=== PATIENT | female | born 2000 | race Caucasian/White ===

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

== ENCOUNTER 2018-01-24 15:36 | Emergency (ER) | payer BC, OTHER ==
[2018-01-24 16:51] VITALS: BP 152/81
--- NOTE | 2018-01-24 18:11 | UC ---
UC General HPI - HPI Summary HPI Summary: 3-4 day hx of cough with chest congestion. no fever or asthma. lungs feel a little tight but no wheezing or sob. started mucinex and feels better than she did yesterday. - History of Current Complaint Chief Complaint: UCRespiratory Stated Complaint: COUGH/CHEST CONGESTION Time Seen by Provider: 01/24/18 18:06 Hx Obtained From: Patient Hx Last Menstrual Period: 01/02/18 Onset/Duration: Gradual Onset Timing: Constant Pain Intensity: 0 Associated Signs & Symptoms: Negative: Chest Pain, Diarrhea, Fever, Nausea, Vomiting - Allergy/Home Medications Allergies/Adverse Reactions: Allergies Allergy/AdvReac Type Severity Reaction Status Date / Time No Known Allergies Allergy Verified 01/24/18 16:49 Home Medications: Home Medications Ibuprofen TAB* [Motrin TAB* 400 MG] 400 mg PO Q6H PRN 01/24/18 [History Confirmed 01/24/18] PMH/Surg Hx/FS Hx/Imm Hx Previously Healthy: Yes - Surgical History Surgical History: None - Family History Known Family History: Positive: None - Social History Occupation: Student Lives: Dormitory/Roommates Alcohol Use: Rare Substance Use Type: None Smoking Status (MU): Never Smoked Tobacco - Immunization History Most Recent Influenza Vaccination: 2017 Vaccination Up to Date: Yes Review of Systems All Other Systems Reviewed And Are Negative: Yes Constitutional: Positive: Negative Skin: Positive: Negative Eyes: Positive: Negative ENT: Positive: Negative Respiratory: Positive: Cough Cardiovascular: Positive: Negative Gastrointestinal: Positive: Negative Genitourinary: Positive: Negative Motor: Positive: Negative Neurovascular: Positive: Negative Musculoskeletal: Positive: Negative Neurological: Positive: Negative Psychological: Positive: Negative Physical Exam Triage Information Reviewed: Yes Appearance: Well-Appearing Vital Signs: Initial Vital Signs Temp 98.1 F 01/24/18 16:48 Pulse 94 01/24/18 16:48 Resp 16 01/24/18 16:48 BP 152/81 01/24/18 16:48 Pulse Ox 99 01/24/18 16:48 Eye Exam: Normal ENT: Positive: Pharynx normal, TMs normal. Negative: Nasal congestion, Nasal drainage Neck: Positive: Supple, Nontender, No Lymphadenopathy Respiratory: Positive: Lungs clear, Normal breath sounds, No respiratory distress, Other: - Occasional cough with mild congestion. Cardiovascular: Positive: RRR, No Murmur Abdomen Description: Positive: Nontender, No Organomegaly, Soft Bowel Sounds: Positive: Present Musculoskeletal: Positive: ROM Intact Neurological: Positive: Alert Psychological: Positive: Age Appropriate Behavior Skin Exam: Normal Course/Dx - Course Course Of Treatment: BP illness/visit related. - Differential Dx - Multi-Symptom Differential Diagnoses: Other - her lung tightnes.no concern for pneumonia. pt improvingg since yesterday. pt to continue Mucinex and I will add albuterol for - Diagnoses Provider Diagnosis: Bronchitis Discharge - Sign-Out/Discharge Documenting (check all that apply): Patient Departure All imaging exams completed and their final reports reviewed: No Studies - Discharge Plan Condition: Stable Disposition: HOME Prescriptions: Albuterol HFA INHALER* [Ventolin HFA Inhaler*] 2 puff INH Q6H #1 mdi Patient Education Materials: Acute Bronchitis (ED) Referrals: [facility] [Outside] - 5 Days - Billing Disposition and Condition Condition: STABLE Disposition: Home
== END 2018-01-24 18:18 | disposition home or self-care (01) ==
LOC: UCCORT 15:36
DX: J40 Bronchitis, not specified as acute or chronic (principal)
CPT/HCPCS: 99212; G0463

== ENCOUNTER 2018-06-08 14:32 | Emergency (ER) | payer BC ==
[2018-06-08 16:39] VITALS: BP 125/69
--- NOTE | 2018-06-08 17:04 | UC ---
Throat Pain/Nasal Williams HPI - HPI Summary HPI Summary: 17-year-old female presents with approximately one week history of nasal congestion, sinus pressure, and sore throat. States had a subjective fever at the onset of symptoms however no fevers in the past several days. Over the past 2 days has been developing left ear pain and fullness. States pain awoke her from sleep last night. Has taken ibuprofen with some relief in her symptoms. Denies ear drainage, tinnitus, vertigo, dysphagia, chest pain, cough , shortness of breath, abdominal pain, nausea, or vomiting. - History of Current Complaint Chief Complaint: UCRespiratory Stated Complaint: CONGESTION/LEFT EAR PAIN Time Seen by Provider: 06/08/18 16:34 Hx Obtained From: Patient Hx Last Menstrual Period: "about a month ago" Pain Intensity: 1 - Allergies/Home Medications Allergies/Adverse Reactions: Allergies Allergy/AdvReac Type Severity Reaction Status Date / Time No Known Allergies Allergy Verified 06/08/18 16:35 Home Medications: Home Medications Desog-E.estradiol/E.estradiol [Viorele 28 Day Tablet] 1 tab DAILY 06/08/18 [ History Confirmed 06/08/18] PMH/Surg Hx/FS Hx/Imm Hx Previously Healthy: Yes - Denies sigificant PMH - Surgical History Surgical History: None - Family History Known Family History: Positive: Non-Contributory - Social History Occupation: Employed Full-time Lives: Alone Alcohol Use: None Substance Use Type: None Smoking Status (MU): Never Smoked Tobacco - Immunization History Most Recent Influenza Vaccination: 2017 Vaccination Up to Date: Yes Review of Systems All Other Systems Reviewed And Are Negative: Yes Constitutional: Positive: Fever, Chills, Fatigue Skin: Negative: Rash Eyes: Negative: Drainage, Eye Redness ENT: Positive: Sore Throat, Ear Ache, Nasal Discharge, Sinus Congestion, Sinus Pain/Tenderness Respiratory: Negative: Shortness Of Breath, Cough Cardiovascular: Negative: Palpitations, Chest Pain Gastrointestinal: Positive: Abdominal Pain, Vomiting, Diarrhea, Nausea Musculoskeletal: Positive: Negative Neurological: Positive: Negative Is Patient Immunocompromised?: No Physical Exam - Summary Physical Exam Summary: GENERAL APPEARANCE: Well developed, well nourished, alert and cooperative, and appears to be in no acute distress. EYES: Conjunctiva clear. No drainage. EARS: External auditory canals clear. Right TM opaque with good cone of light. Left TM erythematous and bulging. NOSE: Mild-moderate nasal congestion. Maxillary sinus tenderness. THROAT: Pharyngeal erythema. No tonsilar inflammation, swelling, exudate, or lesions. Uvula midline. Oral cavity normal. Teeth and gingiva in good general condition. NECK: Neck supple, non-tender without lymphadenopathy. CARDIAC: Normal S1 and S2. No S3, S4 or murmurs. Rhythm is regular. There is no peripheral edema, cyanosis or pallor. Extremities are warm and well perfused. Capillary refill is less than 2 seconds. Peripheral pulses intact. LUNGS: Clear to auscultation without rales, rhonchi, wheezing or diminished breath sounds. ABDOMEN: Positive bowel sounds. Soft, nondistended, nontender. No guarding or rebound. No masses or hepatosplenomegally. MUSKULOSKELETAL: ROM intact to all extremities. No joint erythema or tenderness. Normal muscular development. Normal gait. SKIN: Skin normal color, texture and turgor with no lesions or eruptions. Triage Information Reviewed: Yes Vital Signs: Initial Vital Signs Temp 98.2 F 06/08/18 16:36 Pulse 87 06/08/18 16:36 Resp 16 06/08/18 16:36 BP 125/69 06/08/18 16:36 Pulse Ox 100 06/08/18 16:36 Vital Signs Reviewed: Yes Throat Pain/Nasal Course/Dx - Course Course Of Treatment: 17-year-old female presents with approximately one week history of nasal congestion, sinus pressure, and sore throat. States had a subjective fever at the onset of symptoms however no fevers in the past several days. Over the past 2 days has been developing left ear pain and fullness. States pain awoke her from sleep last night. Has taken ibuprofen with some relief in her symptoms. Denies ear drainage, tinnitus, vertigo, dysphagia, chest pain, shortness of breath, abdominal pain, nausea, or vomiting. Afebrile. Vital signs stable. Exam was remarkable for some mild to moderate nasal congestion, maxillary sinus tenderness, mild pharyngeal erythema without tonsillar swelling or exudate, no cervical lymphadenopathy, and a erythematous bulging left TM. We will treat her for an acute maxillary sinusitis with left otitis media with a course of Augmentin 875 mg twice a day 10 days as well as recommend symptomatic treatment. She is to return here [facility] if symptoms do not improve. Anticipatory guidance and warning symptoms were reviewed with the patient. Verbalizes understanding and agrees with plan of care. - Differential Dx/Diagnosis Differential Diagnosis/HQI/PQRI: Influenza, Pharyngitis, Sinusitis, URI Provider Diagnosis: Acute sinusitis, Left otitis media with effusion Discharge - Sign-Out/Discharge Documenting (check all that apply): Patient Departure All imaging exams completed and their final reports reviewed: No Studies - Discharge Plan Condition: Stable Disposition: HOME Prescriptions: Amoxicillin/Clavulanate TAB* [Augmentin TAB 875*] 875 mg PO BID #20 tab Fluticasone NASAL SPRAY 50MCG* [Flonase NASAL SPRAY 50MCG*] 2 spray BOTH NARES DAILY #1 btl Patient Education Materials: Sinusitis (ED), Ear Infection (ED) Referrals: No Primary Care Phys,NOPCP [Primary Care Provider] - Additional Instructions: Your history and exam are consistent with a sinus infection with a left ear infection. We will start you on an antibiotic to treat the infection. Start Augmentin 875 mg 1 tab twice a day for 10 days. Take with food to avoid upset stomach. Be sure to complete the entire course even if feeling better. Drink plenty of fluids to avoid dehydration especially if you are running any fever. Use a saline rinse kit such as Neti Pot or NeilMed at least twice a day to help thin secretions and promote drainage of the sinuses. Use fluticasone (Flonase) nasal spray 2 sprays each nostril once daily. Use an over the counter decongestant such as Sudafed according to directions to help with congestion. Take over the counter acetaminophen (Tylenol) or ibuprofen (Advil, Motrin) according to directions as needed for pain or fever. Return here of follow up with [facility] in 7 days if symptoms persist. Seek immediate medical attention in the emergency room if you have fever greater than 100.5 F despite taking acetaminophen or ibuprofen, have chest pain , difficulty breathing, are unable to swallow, or have any worsening of symptoms. - Billing Disposition and Condition Condition: STABLE Disposition: Home
== END 2018-06-08 17:20 | disposition home or self-care (01) ==
LOC: UCCORT 14:32
DX: J01.90 Acute sinusitis, unspecified (principal); H65.192 Other acute nonsuppurative otitis media, left ear
CPT/HCPCS: 99212; G0463

== ENCOUNTER 2019-04-20 14:17 | Emergency (ER) | payer BC ==
[2019-04-20 15:51] VITALS: BP 112/69
[2019-04-20 16:10] LABS: Influenza A Molecular Negative (Negative); Influenza B Molecular Negative (Negative)
--- NOTE | 2019-04-20 16:14 | UC ---
FLU HPI - HPI Summary HPI Summary: 18-year-old female presents with complaints of general malaise, nasal congestion , sinus pressure, and a productive cough for the past 2-3 weeks. Symptoms are associated with chills and night sweats. States over the last 2-3 days symptoms have been progressively getting worse. No measured fever. Denies ear pain, sore throat, chest pain, shortness of breath, abdominal pain, nausea, vomiting, or diarrhea. - History of Current Complaint Chief Complaint: UCGeneralIllness Stated Complaint: CONGESTION,FEVER,BASS,ACHES Time Seen by Provider: 04/20/19 15:41 Hx Obtained From: Patient Hx Last Menstrual Period: 04/09/19 Pain Intensity: 0 - Allergy/Home Medications Allergies/Adverse Reactions: Allergies Allergy/AdvReac Type Severity Reaction Status Date / Time No Known Allergies Allergy Verified 04/20/19 15:51 Home Medications: Home Medications Desog-E.estradiol/E.estradiol [Viorele 28 Day Tablet] 1 tab PO DAILY 06/08/18 [ History Confirmed 04/20/19] Amoxicillin PO (*) [Amoxicillin 875 MG (*)] 875 mg PO BID #20 tab 04/20/19 [Rx] PMH/Surg Hx/FS Hx/Imm Hx Previously Healthy: Yes - Denies significant PMH - Surgical History Surgical History: None - Family History Known Family History: Positive: Non-Contributory - Social History Occupation: Student Lives: Dormitory/Roommates Alcohol Use: None Substance Use Type: None Smoking Status (MU): Never Smoked Tobacco - Immunization History Most Recent Influenza Vaccination: 2017 Vaccination Up to Date: Yes Review of Systems All Other Systems Reviewed And Are Negative: Yes Constitutional: Positive: Chills, Fatigue Skin: Negative: Rash Eyes: Negative: Drainage, Eye Redness ENT: Positive: Nasal Discharge, Sinus Congestion, Sinus Pain/Tenderness. Negative: Sore Throat, Ear Ache Respiratory: Positive: Cough. Negative: Shortness Of Breath Cardiovascular: Negative: Palpitations, Chest Pain Gastrointestinal: Negative: Abdominal Pain, Vomiting, Diarrhea, Nausea Genitourinary: Positive: Negative Musculoskeletal: Positive: Negative Neurological/Mental Status: Positive: Negative Is Patient Immunocompromised?: No Physical Exam - Summary Physical Exam Summary: GENERAL APPEARANCE: Well developed, well nourished, alert and cooperative, and appears to be in no acute distress. EYES: Conjunctiva clear. No drainage. EARS: External auditory canals and tympanic membranes clear, hearing grossly intact. NOSE: Moderate nasal congestion. No nasal discharge. Maxillary sinus tenderness. THROAT: Pharyngeal cobblestoning. No tonsilar inflammation, swelling, exudate, or lesions. Uvula midline. NECK: Neck supple, non-tender without lymphadenopathy. CARDIAC: Normal S1 and S2. No S3, S4 or murmurs. Rhythm is regular. There is no peripheral edema, cyanosis or pallor. Extremities are warm and well perfused. Capillary refill is less than 2 seconds. Peripheral pulses intact. LUNGS: Clear to auscultation without rales, rhonchi, wheezing or diminished breath sounds. And productive cough. ABDOMEN: Positive bowel sounds. Soft, nondistended, nontender. No guarding or rebound. No masses or hepatosplenomegally. MUSKULOSKELETAL: ROM intact to all extremities. No joint erythema or tenderness. Normal muscular development. Normal gait. SKIN: Skin normal color, texture and turgor with no lesions or eruptions. Triage Information Reviewed: Yes Vital Signs: Initial Vital Signs Temp 97.9 F 04/20/19 15:46 Pulse 108 04/20/19 15:46 Resp 14 04/20/19 15:46 BP 112/69 04/20/19 15:46 Pulse Ox 98 04/20/19 15:46 Vital Signs Reviewed: Yes Flu Course/Dx - Course Course Of Treatment: 18-year-old female presents with complaints of general malaise, nasal congestion , sinus pressure, and a productive cough for the past 2-3 weeks. Symptoms are associated with chills and night sweats. States over the last 2-3 days symptoms have been progressively getting worse. No measured fever. Denies ear pain, sore throat, chest pain, shortness of breath, abdominal pain, nausea, vomiting, or diarrhea. Afebrile. Mildly tachycardic otherwise vital signs stable. Patient had let or nasal congestion, maxillary sinus tenderness, pharyngeal cobblestoning without tonsillar swelling or exudate, no cervical lymphadenopathy, clear bilateral breath sounds, nonproductive cough, but otherwise unremarkable exam. Discussed with the patient that considering the duration and worsening of her symptoms will treat her for a upper respiratory infection with secondary bacterial infection with amoxicillin 875 mg twice a day 7 days as well as symptomatic treatment. She is to return here or follow up with the [facility] in 5-7 days if symptoms are not improving. Anticipatory guidance and warning symptoms reviewed with the patient. Verbalizes understanding and agrees with plan of care. - Differential Dx/Diagnosis Differential Diagnosis/HQI/PQRI: Bronchitis, Influenza, Pneumonia, Upper Respiratory Infection Provider Diagnosis: Upper respiratory infection with cough and congestion Discharge ED - Sign-Out/Discharge Documenting (check all that apply): Patient Departure All imaging exams completed and their final reports reviewed: No Studies - Discharge Plan Condition: Stable Disposition: HOME Prescriptions: Amoxicillin PO (*) [Amoxicillin 875 MG (*)] 875 mg PO BID #20 tab Patient Education Materials: Upper Respiratory Infection (ED) Referrals: No Primary Care Phys,NOPCP [Primary Care Provider] - Additional Instructions: Your history and exam are consistent with an upper respiratory infection. Considering the duration and worsening of symptoms we will start you on an antibiotic to treat for the infection. Take amoxicillin 875 mg 1 tablet twice daily for 10 days. Take with food to avoid upset stomach. The sure to complete the entire course even if feeling better. Drink plenty of fluids to avoid dehydration especially if you are running any fever. Use a saline rinse kit such as Neti Pot or NeilMed at least twice a day to help thin secretions and promote drainage of the sinuses. Use use aybz-bso-jzvkwmo fluticasone (Flonase) nasal spray 2 sprays each nostril once daily. Use an ocai-ezp-sltafkl decongestant such as Sudafed to help with the nasal congestion. Take over the counter acetaminophen (Tylenol) or ibuprofen (Advil, Motrin) according to directions as needed for pain or fever. Return here or follow up with the [facility] in 5-7 days if symptoms persist. Seek immediate medical attention in the emergency room if you have fever greater than 100.5 F despite taking acetaminophen or ibuprofen, have chest pain , difficulty breathing, are unable to swallow, or have any worsening of symptoms. - Billing Disposition and Condition Condition: STABLE Disposition: Home - Attestation Statements Provider Attestation: I was available for consult. This patient was seen by the MIGUEL ANGEL. The patient was not presented to, seen by, or examined by me. -Amy
--- NOTE | 2019-04-21 15:09 | UC ---
- Progress Note Progress Note: reviewed RN telephone notes from 14:55 today. reviewed notes from [facility] visit yesterday. reviewed medications / allergies Rx tessalon perles #30 e-scribed. RN to call pt. Pt should seek medical attention if worse / new symptoms. also noted that pt takes estrogen base medication. if this is for control, advise back up method during the menstrual cycle(s ) during which she takes amoxillin. r Course/Dx - Diagnoses Provider Diagnoses: Upper respiratory infection with cough and congestion Discharge ED - Sign-Out/Discharge Documenting (check all that apply): Post-Discharge Follow Up All imaging exams completed and their final reports reviewed: No Studies - Discharge Plan Condition: Stable Disposition: HOME Prescriptions: Amoxicillin PO (*) [Amoxicillin 875 MG (*)] 875 mg PO BID #20 tab Benzonatate CAP* [Tessalon 100 MG CAP*] 100 mg PO TID PRN #30 cap PRN Reason: Cough Patient Education Materials: Upper Respiratory Infection (ED) Referrals: No Primary Care Phys,NOPCP [Primary Care Provider] - Additional Instructions: Your history and exam are consistent with an upper respiratory infection. Considering the duration and worsening of symptoms we will start you on an antibiotic to treat for the infection. Take amoxicillin 875 mg 1 tablet twice daily for 10 days. Take with food to avoid upset stomach. The sure to complete the entire course even if feeling better. Drink plenty of fluids to avoid dehydration especially if you are running any fever. Use a saline rinse kit such as Neti Pot or NeilMed at least twice a day to help thin secretions and promote drainage of the sinuses. Use use wwaa-ioz-dhcoyzs fluticasone (Flonase) nasal spray 2 sprays each nostril once daily. Use an yiql-usm-ihbuxjo decongestant such as Sudafed to help with the nasal congestion. Take over the counter acetaminophen (Tylenol) or ibuprofen (Advil, Motrin) according to directions as needed for pain or fever. Return here or follow up with the [facility] in 5-7 days if symptoms persist. Seek immediate medical attention in the emergency room if you have fever greater than 100.5 F despite taking acetaminophen or ibuprofen, have chest pain , difficulty breathing, are unable to swallow, or have any worsening of symptoms. - Billing Disposition and Condition Condition: STABLE Disposition: Home
== END 2019-04-20 16:29 | disposition home or self-care (01) ==
LOC: UCCORT 14:17
DX: J06.9 Acute upper respiratory infection, unspecified (principal); R09.81 Nasal congestion; R05 Cough
CPT/HCPCS: 99212; G0463